=== PATIENT | male | born 1945 | race Caucasian/White ===

== ENCOUNTER 2023-01-14 06:45 | Day surgery (SDC) | payer OTHER ==
[2023-01-14] MEDS ORDERED: Epinephrine Preservative Free 1 MG/ML IJ ONE (06:46)
[2023-01-14] MEDS ORDERED: Ak-Dilate OPHTHALMIC*** 1.065 ML, Cyclogyl 1% OPHTH SOL 1.065 ML, GATIFLOXACIN 0.5% OPH... OP ONE ×4 (07:00)
[2023-01-14] MEDS ORDERED: cefUROXime sodium 0.005 GM in Sodium Chloride Flush 30 ML*** 0.5 ML IJ ONE (07:00)
[2023-01-14] MEDS ORDERED: NON-FORMULARY ITEM OP ONE (07:00)
[2023-01-14] MEDS ORDERED: Lactated Ringers 1,000 ML IV SCH (07:00)
[2023-01-14] MEDS ORDERED: BETADINE 5% OPHTHALMIC 30 ML OP ONE (07:00)
[2023-01-14] MEDS ORDERED: TETRACAINE 0.5% STERI-UNIT SOL OP ONE ×2 (07:00)
[2023-01-14] MEDS ORDERED: ACETAZOLAMIDE 250 MG TABLET PO ONE (09:00)
[2023-01-14] MEDS ORDERED: Zofran 4 MG/2 ML VIAL IV PRN (09:00)
[2023-01-14] MEDS ORDERED: DIPRIVAN 200 MG/20 ML IV ONE (09:55)
[2023-01-14] MEDS ORDERED: PHENYLEPHRINE HCL ONE (10:03)
[2023-01-14 10:30] VITALS: BP 111/67; PULSE 66; O2SAT 97
== END 2023-01-14 10:59 | disposition home or self-care (01) ==
LOC: SDC 06:45
PROVIDERS: ATTEND Ophthalmology
DX: H25.812 Combined forms of age-related cataract, left eye (principal)
CPT/HCPCS: 99100; C1780; J0171; J2370; J2704; A9270-GY

== ENCOUNTER 2023-02-11 08:06 | Day surgery (SDC) | payer OTHER ==
[~2023-02-11 08:06] MED LIST: Ak-Dilate OPHTHALMIC*** 1.065 ML, Cyclogyl 1% OPHTH SOL 1.065 ML, GATIFLOXACIN 0.5% OPH... OP ONE; BETADINE 5% OPHTHALMIC 30 ML OP ONE; Lactated Ringers 1,000 ML IV SCH; NON-FORMULARY ITEM OP ONE; TETRACAINE 0.5% STERI-UNIT SOL OP ONE; cefUROXime sodium 0.005 GM in Sodium Chloride Flush 30 ML*** 0.5 ML IJ ONE
[2023-02-11] MEDS ORDERED: Epinephrine Preservative Free 1 MG/ML IJ ONE (08:07)
[2023-02-11] MEDS ORDERED: Zofran 4 MG/2 ML VIAL IV PRN (09:00)
[2023-02-11] MEDS ORDERED: ACETAZOLAMIDE 250 MG TABLET PO ONE (09:00)
[2023-02-11 12:36] VITALS: BP 127/68; PULSE 59; O2SAT 100
== END 2023-02-11 12:42 | disposition home or self-care (01) ==
LOC: SDC 08:06
PROVIDERS: ATTEND Ophthalmology
DX: H25.811 Combined forms of age-related cataract, right eye (principal)
CPT/HCPCS: C1780; J0171; A9270-GY